=== PATIENT | male | born 1985 | race Two or more races ===

== ENCOUNTER 2022-09-24 15:11 | Emergency (ER) | payer OTHER ==
[2022-09-24] MEDS ORDERED: Diphtheria,Pertussis(Acell),Tetanus Vaccine 0.5 ML Syringe IM ONE (16:44)
[2022-09-24] MEDS ORDERED: Bacitracin Oint 1 GM U/D Packet TOP ONE (16:44)
[2022-09-24] MEDS ORDERED: Lidocaine 1% 5 ML VIAL INJECT ONE (16:44)
[2022-09-24] MEDS ORDERED: ceFAZolin 1 GM Vial IM ONE (17:37)
== END 2022-09-24 19:04 | disposition home or self-care (01) ==
LOC: JP.ED 15:11
DX: S62.632B Displaced fracture of distal phalanx of right middle finger, initial encounter for open fracture (principal); Z23 Encounter for immunization; W31.2XXA Contact with powered woodworking and forming machines, initial encounter; Y92.89 Other specified places as the place of occurrence of the external cause; Y99.0 Civilian activity done for income or pay
CPT/HCPCS: 12001; 73140; 90471; 90715; 96372; 99283; J0690